=== PATIENT | male | born 1960 | race Caucasian/White ===

== ENCOUNTER 2016-10-09 11:45 | Observation (INO) | payer OTHER ==
[~2016-10-09] VITALS: Ht 177.8 cm; Wt 61.9 kg
[2016-10-09] VITALS (12 sets, daily range): BP systolic 95–108; BP diastolic 49–56
[2016-10-09 12:44] LABS: HEMATOCRIT 14.2 % (38.0-50.0); MCH 34.1 PG (29.0-34.0); MCHC 33.1 G/DL (30.0-36.0); MCV 102.9 FL (86-99); RBC DIS.WIDTH-CV 17.7 % (11.8-14.6); RBC DIS.WIDTH-SD 66.5 % (39-53); RED BLOOD COUNT 1.38 M/uL (4.00-5.50)
[2016-10-09 12:45] LABS: INTER. NORMALIZED RATIO 1.1; PROTHROMBIN TIME 11.4 (9.2-11.2); PTT 28.1 (25-32)
[2016-10-09 12:46] LABS: WHITE BLOOD COUNT 0.7 K/uL (4.1-10.2)
[2016-10-09 12:48] LABS: CHLORIDE 104 mEq/L (99-109); POTASSIUM 4.7 mEq/L (3.7-5.4); SODIUM 133 mEq/L (136-147)
[2016-10-09 12:51] LABS: GLUCOSE 97 mg/dL (70-99)
[2016-10-09 12:52] LABS: ANION GAP 7 MEQ/L (2-14)
[2016-10-09 12:53] LABS: TOTAL BILIRUBIN 0.8 mg/dL (0.0-1.0)
[2016-10-09 12:54] LABS: ALKALINE PHOSPHATASE 60 IU/L (3-129); GFR ESTIMATE (CALCULATED) > 59 mL/min/
[2016-10-09 12:55] LABS: UREA NITROGEN (BUN) 21 mg/dL (9-23)
[2016-10-09] MEDS ORDERED: MORPHINE SULFAT30 M2 PO (14:31)
[2016-10-09] MEDS ORDERED: ACYCLOVIR400 MG PO (14:32)
[2016-10-09] MEDS ORDERED: OXYCODONE HCL20 M1 PO (14:32)
[2016-10-09 14:47] LABS: ABS NEUTROPHIL COUNT 0; ANISOCYTOSIS 2+; EOSINOPHIL ABS CT 0; HYPOCHROMASIA 1+; IMM.PLATELET FRACTION 3.7 (1-7); INSTRUMENT ABS NEUTROPHIL CT 0.1 K/uL; MACROCYTES 1+; MICROCYTOSIS 1+; OVALOCYTES 1+; PLAT.SUFFICIENCY DECREASED; POIKILOCYTOSIS 1+; SMEAR EVALUATION YES; TEAR DROP CELLS 1+
[2016-10-09 14:48] LABS: PLATELET COUNT 4 K/uL (156-360)
[2016-10-10] VITALS (11 sets, daily range): BP systolic 94–108; BP diastolic 50–59
[2016-10-10 10:46] LABS: HEMATOCRIT 21.5 % (38.0-50.0); MCH 31.2 PG (29.0-34.0); RBC DIS.WIDTH-CV 19.2 % (11.8-14.6); RBC DIS.WIDTH-SD 62.9 % (39-53)
[2016-10-10 11:09] LABS: MCV 91.9 FL (86-99); RED BLOOD COUNT 2.34 M/uL (4.00-5.50); WHITE BLOOD COUNT 0.7 K/uL (4.1-10.2)
[2016-10-10 12:21] LABS: EOSINOPHIL (%) 0 % (0-5); IMMATURE GRANULOCYTE (%) 4.5 % (0.0-0.7); INSTRUMENT ABS NEUTROPHIL CT 0.1 K/uL; LYMPHOCYTE COUNT 0.5 K/uL (1.0-2.8); MEAN PLAT.VOLUME 8.3 uM^3 (9.0-12.4); MONOCYTE (%) 6.1 % (3-12); NEUTROPHIL (%) 19.7 % (45-76); NEUTROPHIL COUNT 0.1 K/uL (1.8-6.4); PLAT.SUFFICIENCY DECREASED
[2016-10-10 12:23] LABS: PLATELET COUNT 27 K/uL (156-360)
== END 2016-10-10 14:42 | disposition home or self-care (01) ==
LOC: EME 11:45 → EDOF 13:53 → 5WEST 13:53 → EDOF 14:40 → 5WEST 16:05
PROVIDERS: Emergency Medicine; Internal Medicine
DX: D46.9 Myelodysplastic syndrome, unspecified (principal); D61.818 Other pancytopenia; F17.200 Nicotine dependence, unspecified, uncomplicated
CPT/HCPCS: 73502; 80053; 85007; 85025; 85027; 85060; 85610; 85730; 86850; 86900; 86901; 86920; 99202; 99281; 99285; G0378; J1447; J1940; P9016; P9035

== ENCOUNTER 2016-11-06 11:40 | Inpatient (IN) | payer OTHER ==
[2016-11-06] VITALS (12 sets, daily range): BP systolic 105–123; BP diastolic 51–75
[~2016-11-06] VITALS: Ht 177.8 cm; Wt 68.1 kg
[~2016-11-06 11:40] MED LIST: ACYCLOVIR400 MG PO; MORPHINE SULFAT30 M2 PO; OXYCODONE HCL20 M1 PO
[2016-11-06 12:42] LABS: HEMATOCRIT 13.3 % (38.0-50.0); MCH 31.7 PG (29.0-34.0); MCHC 33.1 G/DL (30.0-36.0); MCV 95.7 FL (86-99); NRBC (%) 5.2 /100 WBC (0-0); RBC DIS.WIDTH-CV 21.6 % (11.8-14.6); RBC DIS.WIDTH-SD 72.3 % (39-53); RED BLOOD COUNT 1.39 M/uL (4.00-5.50)
[2016-11-06 12:44] LABS: CHLORIDE 103 mEq/L (99-109); POTASSIUM 5.2 mEq/L (3.7-5.4); SODIUM 132 mEq/L (136-147)
[2016-11-06 12:45] LABS: WHITE BLOOD COUNT 0.8 K/uL (4.1-10.2)
[2016-11-06 12:46] LABS: GLUCOSE 101 mg/dL (70-99)
[2016-11-06 12:48] LABS: ANION GAP 8 MEQ/L (2-14)
[2016-11-06 12:50] LABS: GFR ESTIMATE (CALCULATED) > 59 mL/min/
[2016-11-06 12:51] LABS: UREA NITROGEN (BUN) 28 mg/dL (9-23)
[2016-11-06 13:31] LABS: ABS NEUTROPHIL COUNT 0.1; ANISOCYTOSIS 2+; BAND NEUTROPHILS 3.1 % (0-8.0); EOSINOPHIL ABS CT 0; HYPOCHROMASIA 2+; IMM.PLATELET FRACTION 5.5 (1-7); INSTRUMENT ABS NEUTROPHIL CT 0.1 K/uL; LYMPHOCYTES 71.4 % (15.0-45.0); MACROCYTES 1+; MEAN PLAT.VOLUME 9.2 uM^3 (9.0-12.4); MICROCYTOSIS 1+; NUCLEATED RBC'S 7.1; OVALOCYTES 1+; PLAT.SUFFICIENCY VERY DECREASED; PLATELET COUNT 14 K/uL (156-360); POLYCHROMASIA 1+; SEG.NEUTROPHILS 14.8 % (46.0-76.0); SMUDGE CELLS 3.6; TEAR DROP CELLS 1+
[2016-11-06 19:43] LABS: METH RESISTANT S AUREUS PCR POSITIVE (NEGATIVE)
[2016-11-06 19:55] LABS: PROBE CHECK PASS
[2016-11-07] VITALS (16 sets, daily range): BP systolic 106–127; BP diastolic 55–67
[2016-11-07 00:39] LABS: PLAT.SUFFICIENCY VERY DECREASED
[2016-11-07 00:43] LABS: HEMATOCRIT 17.9 % (38.0-50.0); IMM.PLATELET FRACTION 5.1 (1-7); MCH 30.8 PG (29.0-34.0); MCHC 34.1 G/DL (30.0-36.0); MEAN PLAT.VOLUME 9.7 uM^3 (9.0-12.4); NRBC (%) 5.4 /100 WBC (0-0); RBC DIS.WIDTH-CV 18.7 % (11.8-14.6); RBC DIS.WIDTH-SD 53.6 % (39-53); RED BLOOD COUNT 1.98 M/uL (4.00-5.50); WHITE BLOOD COUNT 0.9 K/uL (4.1-10.2)
[2016-11-07 00:44] LABS: MCV 90.4 FL (86-99); PLATELET COUNT 13 K/uL (156-360)
[2016-11-07 08:32] LABS: ANION GAP 6 MEQ/L (2-14); CHLORIDE 101 MEQ/L (99-109); GFR ESTIMATE (CALCULATED) > 59 mL/min/; GLUCOSE 97 mg/dL (70-99); POTASSIUM 4.4 MEQ/L (3.7-5.4); SAMPLE HEMOLYSIS CHECK 0; SAMPLE ICTERIC CHECK 0; SAMPLE LIPEMIA CHECK 0; SODIUM 129 MEQ/L (136-147); UREA NITROGEN (BUN) 25 mg/dL (9-23)
[2016-11-07 08:37] LABS: HEMATOCRIT 24.1 % (38.0-50.0); MCHC 33.6 G/DL (30.0-36.0); MCV 89.3 FL (86-99); NRBC (%) 4.9 /100 WBC (0-0); RBC DIS.WIDTH-CV 17.8 % (11.8-14.6); RBC DIS.WIDTH-SD 50.8 % (39-53)
[2016-11-07 09:32] LABS: IMM.PLATELET FRACTION 3.6 (1-7); MEAN PLAT.VOLUME 8.6 uM^3 (9.0-12.4); PLATELET COUNT 21 K/uL (156-360)
[2016-11-07 09:34] LABS: PLAT.SUFFICIENCY VERY DECREASED
[2016-11-07 09:58] LABS: ALKALINE PHOSPHATASE 98 IU/L (3-129); DIRECT BILIRUBIN 0.5 mg/dL (0.0-0.3); MAGNESIUM 1.7 mg/dl (1.3-2.7); TOTAL BILIRUBIN 1.9 MG/DL (0.0-1.0)
[2016-11-08 04:28] VITALS: BP 116/56
[2016-11-08 06:43] LABS: ANION GAP 6 MEQ/L (2-14); CHLORIDE 100 MEQ/L (99-109); GFR ESTIMATE (CALCULATED) > 59 mL/min/; GLUCOSE 131 mg/dL (70-99); POTASSIUM 4.1 MEQ/L (3.7-5.4); SAMPLE HEMOLYSIS CHECK 0; SAMPLE ICTERIC CHECK 0; SAMPLE LIPEMIA CHECK 0; SODIUM 130 MEQ/L (136-147); UREA NITROGEN (BUN) 22 mg/dL (9-23)
[2016-11-08 06:53] LABS: HEMATOCRIT 22.4 % (38.0-50.0); IMM.PLATELET FRACTION 2.8 (1-7); MCHC 33.5 G/DL (30.0-36.0); MCV 89.6 FL (86-99); NRBC (%) 2.4 /100 WBC (0-0); RBC DIS.WIDTH-CV 18.3 % (11.8-14.6); RBC DIS.WIDTH-SD 54.4 % (39-53)
[2016-11-08 07:00] LABS: WHITE BLOOD COUNT 1.3 K/uL (4.1-10.2)
[2016-11-08 07:01] LABS: MEAN PLAT.VOLUME 10.8 uM^3 (9.0-12.4); PLATELET COUNT 21 K/uL (156-360)
[2016-11-08 08:08] VITALS: BP 131/59
[2016-11-08 08:30] LABS: ABS NEUTROPHIL COUNT 0.4; ANISOCYTOSIS 1+; ATYPICAL LYMPHOCYTE 6.7 %; BAND NEUTROPHILS 3.8 % (0-8.0); EOSINOPHIL ABS CT 0; INSTRUMENT ABS NEUTROPHIL CT 0.3 K/uL; LYMPHOCYTES 54.8 % (15.0-45.0); MACROCYTES 1+; SEG.NEUTROPHILS 30.8 % (46.0-76.0); SMUDGE CELLS 8.7
[2016-11-08 09:30] LABS: PLAT.SUFFICIENCY VERY DECREASED
[2016-11-08 11:32] VITALS: BP 120/58
[2016-11-08 12:55] LABS: ABS NEUTROPHIL COUNT 0.5; ANISOCYTOSIS 1+; ATYPICAL LYMPHOCYTE 4.4 %; EOSINOPHIL ABS CT 0; HEMATOCRIT 23.4 % (38.0-50.0); IMM.PLATELET FRACTION 3.2 (1-7); INSTRUMENT ABS NEUTROPHIL CT 0.4 K/uL; LYMPHOCYTES 51.8 % (15.0-45.0); MACROCYTES 1+; MCH 30.1 PG (29.0-34.0); MCHC 33.3 G/DL (30.0-36.0); MCV 90.3 FL (86-99); METAMYELOCYTES 1.8 %; NUCLEATED RBC'S 0.9; RBC DIS.WIDTH-CV 18.4 % (11.8-14.6); RBC DIS.WIDTH-SD 55.5 % (39-53); RED BLOOD COUNT 2.59 M/uL (4.00-5.50); SEG.NEUTROPHILS 33.3 % (46.0-76.0); SMUDGE CELLS 9.6
[2016-11-08 13:00] LABS: PLAT.SUFFICIENCY VERY DECREASED; PLATELET COUNT 19 K/uL (156-360); WHITE BLOOD COUNT 1.3 K/uL (4.1-10.2)
[2016-11-14] MEDS ORDERED: MORPHINE SULFAT30 M5 PO (15:12)
[2016-11-14] MEDS ORDERED: OXYCODONE HCL20 M1 PO (15:12)
== END 2016-11-08 13:15 | disposition home or self-care (01) | DRG 812 ==
LOC: EME 11:40 → 4EAST 13:41 → EDOF 13:41 → 4EAST 17:04
PROVIDERS: Emergency Medicine; Hospitalist; Internal Medicine
PROC: 30253R1 (ICD-10-PCS; principal; 2016-11-06)
PROC: 30233N1 Transfusion of Nonautologous Red Blood Cells into Peripheral Vein, Percutaneous Approach (ICD-10-PCS; 2016-11-06)
DX: D46.9 Myelodysplastic syndrome, unspecified (principal); D61.818 Other pancytopenia; E87.1 Hypo-osmolality and hyponatremia; M54.9 Dorsalgia, unspecified; M25.50 Pain in unspecified joint; F17.210 Nicotine dependence, cigarettes, uncomplicated; I95.9 Hypotension, unspecified; R00.1 Bradycardia, unspecified; Z86.14 Personal history of Methicillin resistant Staphylococcus aureus infection; Z88.1 Allergy status to other antibiotic agents; Z80.1 Family history of malignant neoplasm of trachea, bronchus and lung; Z80.0 Family history of malignant neoplasm of digestive organs; Z80.8 Family history of malignant neoplasm of other organs or systems; Z80.49 Family history of malignant neoplasm of other genital organs
CPT/HCPCS: 36415; 80048; 80076; 83735; 84100; 85007; 85025; 85025 91; 85027; 86850; 86900; 86901; 86920; 87641; 93005; 99281; 99285; J1447; P9016; P9035; S0028

== ENCOUNTER 2017-01-16 09:49 | Emergency (ER) | payer OTHER ==
[~2017-01-16] VITALS: Ht 180.3 cm; Wt 60.7 kg
[~2017-01-16 09:49] MED LIST changes: +LEVAQUIN500 MG PO; +LORAZEPAM0.5 MG PO; +MIRALAX255 GM PO; +MORPHINE SULFAT30 M5 PO; +ONDANSETRON HCL4 MG PO
[2017-01-16 12:06] VITALS: BP 99/52
== END 2017-01-16 12:08 | disposition home or self-care (01) ==
LOC: EME 09:49
DX: D64.9 Anemia, unspecified (principal); D46.9 Myelodysplastic syndrome, unspecified; Z79.899 Other long term (current) drug therapy; F17.200 Nicotine dependence, unspecified, uncomplicated
CPT/HCPCS: 99281; 99283

== ENCOUNTER 2017-02-05 08:15 | Day surgery (SDC) | payer OTHER ==
[~2017-02-05] VITALS: Ht 177.8 cm; Wt 60.3 kg
[2017-02-05 11:38] LABS: HEMATOCRIT 23.9 % (38.0-50.0); MCH 30.5 PG (29.0-34.0); MCHC 33.5 G/DL (30.0-36.0); MCV 91.2 FL (86-99); NRBC (%) 2.5 /100 WBC (0-0); RBC DIS.WIDTH-SD 51.9 % (39-53); RED BLOOD COUNT 2.62 M/uL (4.00-5.50)
[2017-02-05 12:19] LABS: EOSINOPHIL (%) 0 % (0-5); IMMATURE GRANULOCYTE (%) 0.8 % (0.0-0.7); INSTRUMENT ABS NEUTROPHIL CT 0.1 K/uL; LYMPHOCYTE COUNT 1.1 K/uL (1.0-2.8); MEAN PLAT.VOLUME 10.4 uM^3 (9.0-12.4); MONOCYTE (%) 4.1 % (3-12); MONOCYTE COUNT 0.1 K/uL (0-0.8); NEUTROPHIL (%) 5.8 % (45-76); NEUTROPHIL COUNT 0.1 K/uL (1.8-6.4); PLAT.SUFFICIENCY DECREASED
[2017-02-05 12:20] LABS: PLATELET COUNT 21 K/uL (156-360); WHITE BLOOD COUNT 1.2 K/uL (4.1-10.2)
== END 2017-02-05 15:28 | disposition home or self-care (01) ==
LOC: CATH 08:15
PROVIDERS: Surgery
PROC: 0JH60XZ Insertion of Tunneled Vascular Access Device into Chest Subcutaneous Tissue and Fascia, Open Approach (ICD-10-PCS; principal; 2017-02-05)
DX: D46.9 Myelodysplastic syndrome, unspecified (principal); F17.210 Nicotine dependence, cigarettes, uncomplicated; Z82.49 Family history of ischemic heart disease and other diseases of the circulatory system
CPT/HCPCS: 36415; 80053; 85025; 86900; 86901; C1752; C1894; J0690; J1644; J2250; J3010; P9035; S0020

== ENCOUNTER 2017-02-10 16:44 | Inpatient (IN) | payer OTHER ==
[~2017-02-10] VITALS: Ht 177.8 cm; Wt 67.3 kg
[2017-02-10 15:18] LABS: ANION GAP 7 MEQ/L (2-14); CHLORIDE 100 MEQ/L (99-109); POTASSIUM 3.5 MEQ/L (3.7-5.4); SAMPLE HEMOLYSIS CHECK 0; SAMPLE ICTERIC CHECK 0; SAMPLE LIPEMIA CHECK 0; SODIUM 129 MEQ/L (136-147); TOTAL BILIRUBIN 1.6 MG/DL (0.0-1.0)
[2017-02-10 15:24] LABS: ALKALINE PHOSPHATASE 120 IU/L (3-129); GFR ESTIMATE (CALCULATED) > 59 mL/min/; GLUCOSE 98 mg/dL (70-99); UREA NITROGEN (BUN) 24 mg/dL (9-23)
[2017-02-10 15:29] LABS: HEMATOCRIT 14.2 % (38.0-50.0); MCH 29.6 PG (29.0-34.0); MCHC 33.8 G/DL (30.0-36.0); MCV 87.7 FL (86-99); RBC DIS.WIDTH-CV 15.4 % (11.8-14.6); RBC DIS.WIDTH-SD 46.2 % (39-53); RED BLOOD COUNT 1.62 M/uL (4.00-5.50); WHITE BLOOD COUNT 0.3 K/uL (4.1-10.2)
[2017-02-10 17:06] LABS: ABS NEUTROPHIL COUNT 0; ANISOCYTOSIS 1+; EOSINOPHIL ABS CT 0; HYPOCHROMASIA 3+; IMM.PLATELET FRACTION 2.4 (1-7); INSTRUMENT ABS NEUTROPHIL CT 0 K/uL; MACROCYTES 1+; MEAN PLAT.VOLUME 8.7 uM^3 (9.0-12.4)
[2017-02-10 17:07] LABS: PLAT.SUFFICIENCY VERY DECREASED; PLATELET COUNT 14 K/uL (156-360)
[2017-02-10] MEDS ORDERED: MS CONTIN,ORAMO30 MG PO (17:38)
[2017-02-10] MEDS ORDERED: CLOTRIMAZOLE10 MG PO (17:39)
[2017-02-10] MEDS ORDERED: EPOGEN,PRO20000 UNIT IV (17:40)
[2017-02-10 18:06] LABS: CHLORIDE 99 mEq/L (99-109); POTASSIUM 3.2 mEq/L (3.7-5.4); SODIUM 130 mEq/L (136-147)
[2017-02-10 18:08] LABS: GLUCOSE 96 mg/dL (70-99)
[2017-02-10 18:09] LABS: ANION GAP 10 MEQ/L (2-14)
[2017-02-10 18:12] LABS: GFR ESTIMATE (CALCULATED) > 59 mL/min/; UREA NITROGEN (BUN) 25 mg/dL (9-23)
[2017-02-10 18:18] LABS: TROP-I INTERPRETATION NEGATIVE; TROPONIN-I < 0.01 ng/mL (0.0-0.30)
[2017-02-10 20:15] VITALS: BP 93/46
[2017-02-10 20:31] VITALS: BP 87/37
[2017-02-10] MEDS ORDERED: ACYCLOVIR400 MG PO (20:35)
[2017-02-10 21:32] VITALS: BP 99/47
[2017-02-10 22:12] VITALS: BP 100/71
[2017-02-10 23:10] VITALS: BP 97/47
[2017-02-10 23:26] VITALS: BP 101/47
[2017-02-11] VITALS (22 sets, daily range): BP systolic 11–125; BP diastolic 46–98
[2017-02-11 03:33] LABS: METH RESISTANT S AUREUS PCR POSITIVE (NEGATIVE)
[2017-02-11 03:37] LABS: PROBE CHECK PASS
[2017-02-11 05:51] LABS: TROP-I INTERPRETATION NEGATIVE; TROPONIN-I < 0.01 ng/mL (0.0-0.30)
[2017-02-11 05:56] LABS: ALKALINE PHOSPHATASE 95 IU/L (3-129); ANION GAP 6 MEQ/L (2-14); CHLORIDE 104 MEQ/L (99-109); DIRECT BILIRUBIN 0.9 mg/dL (0.0-0.3); GFR ESTIMATE (CALCULATED) > 59 mL/min/; GLUCOSE 96 mg/dL (70-99); POTASSIUM 3.4 MEQ/L (3.7-5.4); SAMPLE HEMOLYSIS CHECK 0; SAMPLE ICTERIC CHECK 0; SAMPLE LIPEMIA CHECK 0; SODIUM 132 MEQ/L (136-147); UREA NITROGEN (BUN) 22 mg/dL (9-23)
[2017-02-11 05:57] LABS: TOTAL BILIRUBIN 2.5 MG/DL (0.0-1.0)
[2017-02-11 07:07] LABS: HEMATOCRIT 17.2 % (38.0-50.0); MCH 29.9 PG (29.0-34.0); MCHC 34.3 G/DL (30.0-36.0); MCV 87.3 FL (86-99); RBC DIS.WIDTH-CV 14.6 % (11.8-14.6); RBC DIS.WIDTH-SD 44.2 % (39-53)
[2017-02-11 07:11] LABS: PLATELET COUNT 9 K/uL (156-360); RED BLOOD COUNT 1.97 M/uL (4.00-5.50); WHITE BLOOD COUNT 0.3 K/uL (4.1-10.2)
[2017-02-11 07:12] LABS: PLAT.SUFFICIENCY DECREASED
[2017-02-11] MEDS ORDERED: ACYCLOVIR400 MG PO (10:02)
[2017-02-11] MEDS ORDERED: FLUCONAZOLE200 MG PO (10:04)
[2017-02-11 13:13] LABS: ADD MIUA? YES; BILIRUBIN NEGATIVE; BLOOD NEGATIVE; COLOR AMBER ((YELLOW)); GLUCOSE (STRIP) NEGATIVE; KETONES NEGATIVE; LEUKOCYTES NEGATIVE; NITRITE NEGATIVE; PROTEIN (STRIP) NEGATIVE; SPECIFIC GRAVITY 1.027 (1.000-1.030)
[2017-02-11 13:40] LABS: BACTERIA RARE /HPF; EPITHELIAL CELLS RARE /HPF; MUCUS 2+ /LPF; RED BLOOD CELLS TNTC /HPF (0-5); UCUL ADDED? NO; WHITE BLOOD CELLS 0-5 /HPF (0-5)
[2017-02-11 15:09] LABS: C DIFF TOXIN NEGATIVE (NEGATIVE)
[2017-02-11 15:10] LABS: PROBE CHECK PASS; SPECIMEN PROCESSING CONTROL PASS
[2017-02-11 18:26] LABS: HEMATOCRIT 24.1 % (38.0-50.0); IMM.PLATELET FRACTION 4.8 (1-7); MCH 29.5 PG (29.0-34.0); MCHC 34.9 G/DL (30.0-36.0); MCV 84.6 FL (86-99); PLAT.SUFFICIENCY VERY DECREASED; PLATELET COUNT 9 K/uL (156-360); RBC DIS.WIDTH-CV 15.7 % (11.8-14.6); RED BLOOD COUNT 2.85 M/uL (4.00-5.50); WHITE BLOOD COUNT 0.3 K/uL (4.1-10.2)
[2017-02-11 20:30] LABS: INTER. NORMALIZED RATIO 1.4; PROTHROMBIN TIME 15.8 SEC (10.2-12.9)
[2017-02-11 20:32] LABS: PTT 34.9 SEC (25-37)
[2017-02-11 21:32] LABS: D-DIMER LATEX NEGATIVE
[2017-02-11 21:44] LABS: SCHISTOCYTES NONE SEEN
[2017-02-11 22:32] LABS: FIBRINOGEN 341 mg/dL (150-450)
[2017-02-12] VITALS (23 sets, daily range): BP systolic 11–122; BP diastolic 49–78
[2017-02-12 04:54] LABS: CHLORIDE 95 mEq/L (99-109); POTASSIUM 3.6 mEq/L (3.7-5.4); SODIUM 126 mEq/L (136-147)
[2017-02-12 04:56] LABS: GLUCOSE 101 mg/dL (70-99)
[2017-02-12 04:57] LABS: ANION GAP 10 MEQ/L (2-14)
[2017-02-12 05:00] LABS: GFR ESTIMATE (CALCULATED) > 59 mL/min/; HEMATOCRIT 26.7 % (38.0-50.0); MCH 29.2 PG (29.0-34.0); MCHC 34.8 G/DL (30.0-36.0); RBC DIS.WIDTH-CV 14.8 % (11.8-14.6); RBC DIS.WIDTH-SD 44.9 % (39-53); RED BLOOD COUNT 3.18 M/uL (4.00-5.50)
[2017-02-12 05:01] LABS: UREA NITROGEN (BUN) 19 mg/dL (9-23); WHITE BLOOD COUNT 0.4 K/uL (4.1-10.2)
[2017-02-12 05:41] LABS: TROP-I INTERPRETATION NEGATIVE; TROPONIN-I < 0.01 ng/mL (0.0-0.30)
[2017-02-12 09:11] LABS: IMM.PLATELET FRACTION 1.3 (1-7); MEAN PLAT.VOLUME 9.4 uM^3 (9.0-12.4)
[2017-02-12 09:18] LABS: PLATELET COUNT 35 K/uL (156-360)
[2017-02-12 11:00] LABS: POC NON-PRINT COM 1 ND
[2017-02-12 12:05] LABS: HEMATOCRIT 19.3 % (38.0-50.0); MCH 29.5 PG (29.0-34.0); MCHC 34.7 G/DL (30.0-36.0); RBC DIS.WIDTH-CV 15.1 % (11.8-14.6); RBC DIS.WIDTH-SD 46.5 % (39-53)
[2017-02-12 12:08] LABS: TROP-I INTERPRETATION NEGATIVE; TROPONIN-I < 0.01 ng/mL (0.0-0.30)
[2017-02-12 12:25] LABS: RED BLOOD COUNT 2.27 M/uL (4.00-5.50); WHITE BLOOD COUNT 0.2 K/uL (4.1-10.2)
[2017-02-12 12:49] LABS: IMM.PLATELET FRACTION 1.1 (1-7); MEAN PLAT.VOLUME 9.6 uM^3 (9.0-12.4); PLAT.SUFFICIENCY VERY DECREASED; PLATELET COUNT 25 K/uL (156-360)
[2017-02-12 14:22] LABS: HEMATOCRIT 27.6 % (38.0-50.0); IMM.PLATELET FRACTION 1.3 (1-7); MCH 30.8 PG (29.0-34.0); MCHC 36.6 G/DL (30.0-36.0); MCV 84.1 FL (86-99); MEAN PLAT.VOLUME 9.2 uM^3 (9.0-12.4); PLATELET COUNT 32 K/uL (156-360); RBC DIS.WIDTH-CV 14.7 % (11.8-14.6); RBC DIS.WIDTH-SD 44.2 % (39-53)
[2017-02-12 14:23] LABS: RED BLOOD COUNT 3.28 M/uL (4.00-5.50); WHITE BLOOD COUNT 0.3 K/uL (4.1-10.2)
[2017-02-12 15:11] LABS: PLAT.SUFFICIENCY VERY DECREASED
[2017-02-12 19:12] LABS: HEMATOCRIT 25.5 % (38.0-50.0); MCH 29.8 PG (29.0-34.0); MCHC 34.9 G/DL (30.0-36.0); MCV 85.3 FL (86-99); MEAN PLAT.VOLUME 10.5 uM^3 (9.0-12.4); NRBC (%) 6.7 /100 WBC (0-0); PLAT.SUFFICIENCY DECREASED; RBC DIS.WIDTH-CV 14.9 % (11.8-14.6); RBC DIS.WIDTH-SD 44.6 % (39-53); RED BLOOD COUNT 2.99 M/uL (4.00-5.50)
[2017-02-12 19:13] LABS: ANION GAP 18 MEQ/L (2-14); GFR ESTIMATE (CALCULATED) > 59 mL/min/; GLUCOSE 116 mg/dL (70-99); POTASSIUM 3.5 MEQ/L (3.7-5.4); SAMPLE HEMOLYSIS CHECK 0; SAMPLE ICTERIC CHECK 0; SAMPLE LIPEMIA CHECK 0; UREA NITROGEN (BUN) 17 mg/dL (9-23)
[2017-02-12 19:15] LABS: CHLORIDE 92 MEQ/L (99-109); PLATELET COUNT 115 K/uL (156-360); SODIUM 134 MEQ/L (136-147); WHITE BLOOD COUNT 0.3 K/uL (4.1-10.2)
[2017-02-13] VITALS (13 sets, daily range): BP systolic 95–128; BP diastolic 46–64
[2017-02-13 03:44] LABS: HEMATOCRIT 24.2 % (38.0-50.0); MCH 29.7 PG (29.0-34.0); MCHC 35.5 G/DL (30.0-36.0); MCV 83.4 FL (86-99); RBC DIS.WIDTH-CV 14.7 % (11.8-14.6); RBC DIS.WIDTH-SD 43.9 % (39-53)
[2017-02-13 03:45] LABS: WHITE BLOOD COUNT 0.3 K/uL (4.1-10.2)
[2017-02-13 05:07] LABS: IMM.PLATELET FRACTION 2.3 (1-7); MEAN PLAT.VOLUME 12.1 uM^3 (9.0-12.4); PLAT.SUFFICIENCY DECREASED
[2017-02-13 05:08] LABS: PLATELET COUNT 42 K/uL (156-360)
[2017-02-13 07:06] LABS: HEMATOCRIT 24.8 % (38.0-50.0); MCH 29.2 PG (29.0-34.0); MCHC 34.7 G/DL (30.0-36.0); MCV 84.1 FL (86-99); RBC DIS.WIDTH-CV 14.7 % (11.8-14.6); RBC DIS.WIDTH-SD 44.4 % (39-53); RED BLOOD COUNT 2.95 M/uL (4.00-5.50)
[2017-02-13 07:23] LABS: WHITE BLOOD COUNT 0.4 K/uL (4.1-10.2)
[2017-02-13 07:34] LABS: IMM.PLATELET FRACTION 2.1 (1-7); MEAN PLAT.VOLUME 9.5 uM^3 (9.0-12.4); PLAT.SUFFICIENCY DECREASED; PLATELET COUNT 37 K/uL (156-360)
[2017-02-13 11:12] LABS: MCH 30.3 PG (29.0-34.0); MCHC 35.6 G/DL (30.0-36.0); RBC DIS.WIDTH-CV 14.9 % (11.8-14.6); RBC DIS.WIDTH-SD 45.4 % (39-53); RED BLOOD COUNT 2.94 M/uL (4.00-5.50)
[2017-02-13 11:15] LABS: WHITE BLOOD COUNT 0.2 K/uL (4.1-10.2)
[2017-02-13 11:54] LABS: IMM.PLATELET FRACTION 1.3 (1-7); MEAN PLAT.VOLUME 9.7 uM^3 (9.0-12.4); PLATELET COUNT 37 K/uL (156-360)
[2017-02-13 19:04] LABS: HEMATOCRIT 28.6 % (38.0-50.0); MCV 85.9 FL (86-99); RBC DIS.WIDTH-SD 46.3 % (39-53); RED BLOOD COUNT 3.33 M/uL (4.00-5.50)
[2017-02-13 19:06] LABS: WHITE BLOOD COUNT 0.3 K/uL (4.1-10.2)
[2017-02-13 19:10] LABS: IMM.PLATELET FRACTION 1.9 (1-7); MEAN PLAT.VOLUME 10.3 uM^3 (9.0-12.4); PLAT.SUFFICIENCY DECREASED; PLATELET COUNT 33 K/uL (156-360)
[2017-02-14] VITALS (14 sets, daily range): BP systolic 92–127; BP diastolic 48–75
[2017-02-14 09:11] LABS: ANION GAP 4 MEQ/L (2-14); CHLORIDE 96 MEQ/L (99-109); GFR ESTIMATE (CALCULATED) > 59 mL/min/; GLUCOSE 92 mg/dL (70-99); POTASSIUM 4.2 MEQ/L (3.7-5.4); SAMPLE HEMOLYSIS CHECK 0; SAMPLE ICTERIC CHECK 0; SAMPLE LIPEMIA CHECK 0; SODIUM 128 MEQ/L (136-147); UREA NITROGEN (BUN) 17 mg/dL (9-23)
[2017-02-14 09:13] LABS: MCH 29.5 PG (29.0-34.0); MCHC 34.1 G/DL (30.0-36.0); MCV 86.5 FL (86-99); RBC DIS.WIDTH-CV 15.1 % (11.8-14.6); RBC DIS.WIDTH-SD 47.1 % (39-53); RED BLOOD COUNT 3.12 M/uL (4.00-5.50)
[2017-02-14 09:21] LABS: WHITE BLOOD COUNT 0.3 K/uL (4.1-10.2)
[2017-02-14 09:31] LABS: PLATELET COUNT 62 K/uL (156-360)
[2017-02-14 16:09] LABS: ADD MIUA? NO; BILIRUBIN NEGATIVE; BLOOD NEGATIVE; COLOR AMBER ((YELLOW)); GLUCOSE (STRIP) NEGATIVE; KETONES NEGATIVE; LEUKOCYTES NEGATIVE; NITRITE NEGATIVE; PROTEIN (STRIP) 30; UCUL ADDED? NO
[2017-02-15] VITALS (13 sets, daily range): BP systolic 106–133; BP diastolic 55–66
[2017-02-15 06:21] LABS: HEMATOCRIT 26.5 % (38.0-50.0); MCH 29.6 PG (29.0-34.0); MCHC 34.3 G/DL (30.0-36.0); MCV 86.3 FL (86-99); RBC DIS.WIDTH-CV 15.2 % (11.8-14.6); RBC DIS.WIDTH-SD 47.4 % (39-53); RED BLOOD COUNT 3.07 M/uL (4.00-5.50)
[2017-02-15 06:55] LABS: WHITE BLOOD COUNT 0.4 K/uL (4.1-10.2)
[2017-02-15 07:12] LABS: ANION GAP 5 MEQ/L (2-14); CHLORIDE 96 MEQ/L (99-109); GFR ESTIMATE (CALCULATED) > 59 mL/min/; GLUCOSE 102 mg/dL (70-99); POTASSIUM 4.3 MEQ/L (3.7-5.4); SAMPLE HEMOLYSIS CHECK 0; SAMPLE ICTERIC CHECK 0; SAMPLE LIPEMIA CHECK 0; SODIUM 127 MEQ/L (136-147); UREA NITROGEN (BUN) 17 mg/dL (9-23)
[2017-02-15 07:21] LABS: EOSINOPHIL (%) 0 % (0-5); IMM.PLATELET FRACTION 0.9 (1-7); INSTRUMENT ABS NEUTROPHIL CT 0 K/uL; LYMPHOCYTE COUNT 0.3 K/uL (1.0-2.8); MEAN PLAT.VOLUME 10.3 uM^3 (9.0-12.4); MONOCYTE (%) 2.7 % (3-12); NEUTROPHIL (%) 8.1 % (45-76); PLATELET COUNT 44 K/uL (156-360)
[2017-02-15 09:36] LABS: POC NON-PRINT COM 1 ND
[2017-02-15 10:42] LABS: GFR ESTIMATE (CALCULATED) > 59 mL/min/
[2017-02-15 10:44] LABS: VANCOMYCIN, TROUGH 6.5 MCG/ML (10-20)
[2017-02-16] VITALS (7 sets, daily range): BP systolic 105–140; BP diastolic 52–81
[2017-02-16 05:44] LABS: ANION GAP 7 MEQ/L (2-14); CHLORIDE 96 MEQ/L (99-109); GFR ESTIMATE (CALCULATED) > 59 mL/min/; GLUCOSE 92 mg/dL (70-99); POTASSIUM 4.3 MEQ/L (3.7-5.4); SAMPLE HEMOLYSIS CHECK 0; SAMPLE ICTERIC CHECK 0; SAMPLE LIPEMIA CHECK 0; SODIUM 128 MEQ/L (136-147); UREA NITROGEN (BUN) 17 mg/dL (9-23)
[2017-02-16 07:33] LABS: HEMATOCRIT 25.7 % (38.0-50.0); MCH 29.3 PG (29.0-34.0); MCHC 33.5 G/DL (30.0-36.0); MCV 87.4 FL (86-99); NRBC (%) 6.9 /100 WBC (0-0); RBC DIS.WIDTH-CV 15.4 % (11.8-14.6); RED BLOOD COUNT 2.94 M/uL (4.00-5.50)
[2017-02-16 07:57] LABS: WHITE BLOOD COUNT 0.3 K/uL (4.1-10.2)
[2017-02-16 08:41] LABS: EOSINOPHIL (%) 0 % (0-5); IMMATURE GRANULOCYTE (%) 3.4 % (0.0-0.7); INSTRUMENT ABS NEUTROPHIL CT 0 K/uL; LYMPHOCYTE COUNT 0.3 K/uL (1.0-2.8); MEAN PLAT.VOLUME 9.8 uM^3 (9.0-12.4); MONOCYTE (%) 3.4 % (3-12); NEUTROPHIL (%) 3.5 % (45-76)
[2017-02-16 08:56] LABS: PLATELET COUNT 59 K/uL (156-360)
[2017-02-17 08:30] VITALS: BP 112/56
[2017-02-17 09:07] LABS: HEMATOCRIT 27.3 % (38.0-50.0); MCHC 34.1 G/DL (30.0-36.0); MCV 88.1 FL (86-99); RBC DIS.WIDTH-CV 15.9 % (11.8-14.6); RBC DIS.WIDTH-SD 50.4 % (39-53)
[2017-02-17 09:13] LABS: WHITE BLOOD COUNT 0.3 K/uL (4.1-10.2)
[2017-02-17 09:15] LABS: ANION GAP 7 MEQ/L (2-14); CHLORIDE 97 MEQ/L (99-109); POTASSIUM 4.4 MEQ/L (3.7-5.4); SAMPLE HEMOLYSIS CHECK 0; SAMPLE ICTERIC CHECK 0; SAMPLE LIPEMIA CHECK 0; SODIUM 131 MEQ/L (136-147)
[2017-02-17 09:17] LABS: MEAN PLAT.VOLUME 10.5 uM^3 (9.0-12.4); PLATELET COUNT 45 K/uL (156-360)
[2017-02-17 09:18] LABS: PLAT.SUFFICIENCY DECREASED
[2017-02-17 09:20] LABS: GFR ESTIMATE (CALCULATED) > 59 mL/min/; GLUCOSE 113 mg/dL (70-99); UREA NITROGEN (BUN) 15 mg/dL (9-23)
[2017-02-17 16:26] VITALS: BP 123/61
[2017-02-17 23:06] VITALS: BP 130/61
[2017-02-18 07:52] VITALS: BP 124/59
[2017-02-18 09:43] LABS: HEMATOCRIT 26.1 % (38.0-50.0); MCH 30.6 PG (29.0-34.0); MCHC 34.5 G/DL (30.0-36.0); MCV 88.8 FL (86-99); RBC DIS.WIDTH-CV 15.9 % (11.8-14.6); RBC DIS.WIDTH-SD 51.3 % (39-53); RED BLOOD COUNT 2.94 M/uL (4.00-5.50)
[2017-02-18 09:47] LABS: ANION GAP 5 MEQ/L (2-14); CHLORIDE 96 MEQ/L (99-109); GFR ESTIMATE (CALCULATED) > 59 mL/min/; GLUCOSE 103 mg/dL (70-99); POTASSIUM 4.3 MEQ/L (3.7-5.4); SAMPLE HEMOLYSIS CHECK 0; SAMPLE ICTERIC CHECK 0; SAMPLE LIPEMIA CHECK 0; SODIUM 131 MEQ/L (136-147); UREA NITROGEN (BUN) 15 mg/dL (9-23)
[2017-02-18 09:48] LABS: WHITE BLOOD COUNT 0.5 K/uL (4.1-10.2)
[2017-02-18 10:54] LABS: ABS NEUTROPHIL COUNT 0; ANISOCYTOSIS 2+; ATYPICAL LYMPHOCYTE 2.3 %; BAND NEUTROPHILS 2.3 % (0-8.0); BURR CELLS 1+; EOSINOPHIL ABS CT 0; IMM.PLATELET FRACTION 0.6 (1-7); INSTRUMENT ABS NEUTROPHIL CT 0 K/uL; LYMPHOCYTES 88.9 % (15.0-45.0); MACROCYTES 2+; MEAN PLAT.VOLUME 11.2 uM^3 (9.0-12.4); METAMYELOCYTES 0.6 %; MYELOCYTES 1.8 %; NUCLEATED RBC'S 0.6; OVALOCYTES 1+; PLAT.SUFFICIENCY DECREASED; PLATELET COUNT 34 K/uL (156-360); SEG.NEUTROPHILS 4.1 % (46.0-76.0); SMUDGE CELLS 13.5; TARGET CELLS 1+
[2017-02-18 16:08] VITALS: BP 121/58
[2017-02-19 00:38] VITALS: BP 131/63
[2017-02-19 06:31] LABS: HEMATOCRIT 24.7 % (38.0-50.0); MCHC 34.8 G/DL (30.0-36.0); MCV 89.2 FL (86-99); NRBC (%) 4.5 /100 WBC (0-0); RBC DIS.WIDTH-SD 51.7 % (39-53); RED BLOOD COUNT 2.77 M/uL (4.00-5.50)
[2017-02-19 06:36] LABS: ANION GAP 6 MEQ/L (2-14); CHLORIDE 96 MEQ/L (99-109); GFR ESTIMATE (CALCULATED) > 59 mL/min/; GLUCOSE 96 mg/dL (70-99); POTASSIUM 4.4 MEQ/L (3.7-5.4); SAMPLE HEMOLYSIS CHECK 0; SAMPLE ICTERIC CHECK 0; SAMPLE LIPEMIA CHECK 0; SODIUM 130 MEQ/L (136-147); UREA NITROGEN (BUN) 14 mg/dL (9-23)
[2017-02-19 06:40] LABS: WHITE BLOOD COUNT 0.4 K/uL (4.1-10.2)
[2017-02-19 06:48] LABS: IMM.PLATELET FRACTION 1.4 (1-7); MEAN PLAT.VOLUME 10.9 uM^3 (9.0-12.4)
[2017-02-19 06:49] LABS: PLAT.SUFFICIENCY VERY DECREASED; PLATELET COUNT 26 K/uL (156-360)
[2017-02-19 08:00] VITALS: BP 121/59
[2017-02-19 17:00] VITALS: BP 124/61
[2017-02-19 23:27] VITALS: BP 139/64
[2017-02-20] VITALS (9 sets, daily range): BP systolic 124–142; BP diastolic 56–90
[2017-02-20 06:27] LABS: ANION GAP 7 MEQ/L (2-14); CHLORIDE 99 MEQ/L (99-109); GFR ESTIMATE (CALCULATED) > 59 mL/min/; GLUCOSE 98 mg/dL (70-99); POTASSIUM 4.2 MEQ/L (3.7-5.4); SAMPLE HEMOLYSIS CHECK 0; SAMPLE ICTERIC CHECK 0; SAMPLE LIPEMIA CHECK 0; SODIUM 133 MEQ/L (136-147); UREA NITROGEN (BUN) 14 mg/dL (9-23)
[2017-02-20 06:57] LABS: MCH 29.8 PG (29.0-34.0); MCHC 33.6 G/DL (30.0-36.0); MCV 88.7 FL (86-99); RBC DIS.WIDTH-SD 52.2 % (39-53); RED BLOOD COUNT 2.82 M/uL (4.00-5.50)
[2017-02-20 07:16] LABS: WHITE BLOOD COUNT 0.5 K/uL (4.1-10.2)
[2017-02-20 10:47] LABS: ABS NEUTROPHIL COUNT 0.1; EOSINOPHIL ABS CT 0; IMM.PLATELET FRACTION 1.4 (1-7); INSTRUMENT ABS NEUTROPHIL CT 0.1 K/uL; MEAN PLAT.VOLUME 9.2 uM^3 (9.0-12.4)
[2017-02-20 10:49] LABS: PLATELET COUNT 23 K/uL (156-360)
[2017-02-21 00:40] VITALS: BP 136/90
[2017-02-21 00:47] LABS: HEMATOCRIT 24.4 % (38.0-50.0); MCH 29.6 PG (29.0-34.0); MCHC 33.6 G/DL (30.0-36.0); MCV 88.1 FL (86-99); RBC DIS.WIDTH-CV 16.1 % (11.8-14.6); RBC DIS.WIDTH-SD 51.6 % (39-53); RED BLOOD COUNT 2.77 M/uL (4.00-5.50)
[2017-02-21 00:53] LABS: WHITE BLOOD COUNT 0.5 K/uL (4.1-10.2)
[2017-02-21 01:19] LABS: IMM.PLATELET FRACTION 1.8 (1-7); MEAN PLAT.VOLUME 9.5 uM^3 (9.0-12.4); PLAT.SUFFICIENCY DECREASED; PLATELET COUNT 47 K/uL (156-360)
[2017-02-21 08:10] VITALS: BP 116/55
[2017-02-21 10:01] LABS: HEMATOCRIT 25.4 % (38.0-50.0); MCH 30.1 PG (29.0-34.0); MCHC 33.5 G/DL (30.0-36.0); MCV 90.1 FL (86-99); RBC DIS.WIDTH-SD 52.6 % (39-53); RED BLOOD COUNT 2.82 M/uL (4.00-5.50); WHITE BLOOD COUNT 0.5 K/uL (4.1-10.2)
[2017-02-21 10:33] LABS: HEMATOLOGY COMMENT 1 SMEAR COMPATIBLE; IMM.PLATELET FRACTION 1.1 (1-7); MEAN PLAT.VOLUME 10.6 uM^3 (9.0-12.4); PLAT.SUFFICIENCY DECREASED; PLATELET COUNT 44 K/uL (156-360)
[2017-02-21 11:22] LABS: ANION GAP 6 MEQ/L (2-14); CHLORIDE 100 MEQ/L (99-109); GFR ESTIMATE (CALCULATED) > 59 mL/min/; GLUCOSE 131 mg/dL (70-99); POTASSIUM 3.9 MEQ/L (3.7-5.4); SAMPLE HEMOLYSIS CHECK 0; SAMPLE ICTERIC CHECK 0; SAMPLE LIPEMIA CHECK 0; SODIUM 133 MEQ/L (136-147); UREA NITROGEN (BUN) 13 mg/dL (9-23)
[2017-02-21 16:08] VITALS: BP 116/55
[2017-02-22] VITALS: BP 141/65
[2017-02-22 06:37] LABS: HEMATOCRIT 23.3 % (38.0-50.0); IMM.PLATELET FRACTION 2.1 (1-7); MCH 30.3 PG (29.0-34.0); MCHC 33.9 G/DL (30.0-36.0); MCV 89.3 FL (86-99); MEAN PLAT.VOLUME 11.3 uM^3 (9.0-12.4); PLATELET COUNT 38 K/uL (156-360); RBC DIS.WIDTH-CV 16.2 % (11.8-14.6); RBC DIS.WIDTH-SD 51.8 % (39-53); RED BLOOD COUNT 2.61 M/uL (4.00-5.50)
[2017-02-22 06:52] LABS: WHITE BLOOD COUNT 0.5 K/uL (4.1-10.2)
[2017-02-22 08:06] LABS: ANION GAP 5 MEQ/L (2-14); CHLORIDE 95 MEQ/L (99-109); POTASSIUM 4.4 MEQ/L (3.7-5.4); SAMPLE HEMOLYSIS CHECK 0; SAMPLE ICTERIC CHECK 0; SAMPLE LIPEMIA CHECK 0; SODIUM 127 MEQ/L (136-147)
[2017-02-22 08:10] VITALS: BP 116/53
[2017-02-22 08:11] LABS: GFR ESTIMATE (CALCULATED) > 59 mL/min/; GLUCOSE 117 mg/dL (70-99); UREA NITROGEN (BUN) 11 mg/dL (9-23)
[2017-02-22 12:06] LABS: HEMATOLOGY COMMENT 1 SMEAR COMPATIBLE; PLAT.SUFFICIENCY DECREASED
[2017-02-22 16:00] VITALS: BP 120/57
[2017-02-22 23:05] VITALS: BP 131/63
[2017-02-23 07:27] LABS: HEMATOCRIT 25.6 % (38.0-50.0); MCH 29.7 PG (29.0-34.0); MCHC 33.2 G/DL (30.0-36.0); MCV 89.5 FL (86-99); NRBC (%) 4.4 /100 WBC (0-0); RBC DIS.WIDTH-SD 51.7 % (39-53); RED BLOOD COUNT 2.86 M/uL (4.00-5.50)
[2017-02-23 07:28] LABS: WHITE BLOOD COUNT 0.5 K/uL (4.1-10.2)
[2017-02-23 07:41] VITALS: BP 117/57
[2017-02-23 08:14] LABS: IMM.PLATELET FRACTION 2.3 (1-7); MEAN PLAT.VOLUME 9.4 uM^3 (9.0-12.4); PLAT.SUFFICIENCY DECREASED; PLATELET COUNT 34 K/uL (156-360)
[2017-02-23 11:18] LABS: ANION GAP 5 MEQ/L (2-14); CHLORIDE 95 MEQ/L (99-109); GFR ESTIMATE (CALCULATED) > 59 mL/min/; GLUCOSE 103 mg/dL (70-99); SAMPLE HEMOLYSIS CHECK 0; SAMPLE ICTERIC CHECK 0; SAMPLE LIPEMIA CHECK 0; SODIUM 129 MEQ/L (136-147); UREA NITROGEN (BUN) 12 mg/dL (9-23)
[2017-02-23 11:19] LABS: POTASSIUM 3.4 MEQ/L (3.7-5.4)
[2017-02-23 16:14] VITALS: BP 115/58
[2017-02-23 20:40] VITALS: BP 125/59
[2017-02-24 00:10] VITALS: BP 133/67
[2017-02-24 03:13] VITALS: BP 106/55
[2017-02-24 07:10] VITALS: BP 102/54
[2017-02-24 16:17] VITALS: BP 99/53
[2017-02-25 07:45] VITALS: BP 106/52
[2017-02-25] MEDS ORDERED: DUONEB 2.5-0.5 M3 ML AEROSOL (10:40)
[2017-02-25] MEDS ORDERED: VORICONAZOLE200 MG PO (10:40)
[2017-02-25] MEDS ORDERED: FUROSEMIDE20 MG PO (10:40)
[2017-02-25] MEDS ORDERED: SODIUM CHLORIDE1 G1 PO (10:40)
[2017-02-25 11:41] LABS: MCH 29.6 PG (29.0-34.0); MCV 89.5 FL (86-99); RBC DIS.WIDTH-CV 16.4 % (11.8-14.6); RBC DIS.WIDTH-SD 53.3 % (39-53); RED BLOOD COUNT 2.57 M/uL (4.00-5.50)
[2017-02-25 12:06] LABS: WHITE BLOOD COUNT 0.4 K/uL (4.1-10.2)
[2017-02-25 12:14] LABS: IMM.PLATELET FRACTION 3.4 (1-7); MEAN PLAT.VOLUME 10.1 uM^3 (9.0-12.4)
[2017-02-25 12:17] LABS: ANION GAP 6 MEQ/L (2-14); CHLORIDE 97 MEQ/L (99-109); GFR ESTIMATE (CALCULATED) > 59 mL/min/; GLUCOSE 131 mg/dL (70-99); POTASSIUM 3.5 MEQ/L (3.7-5.4); SAMPLE HEMOLYSIS CHECK 0; SAMPLE ICTERIC CHECK 0; SAMPLE LIPEMIA CHECK 0; SODIUM 131 MEQ/L (136-147); UREA NITROGEN (BUN) 13 mg/dL (9-23)
[2017-02-25 12:25] LABS: PLATELET COUNT 27 K/uL (156-360)
[2017-02-25 16:19] VITALS: BP 123/56
== END 2017-02-25 20:00 | disposition home health service (06) | DRG 808 ==
LOC: EME 16:44 → EDOF 18:00 → 4EAST 21:39 → EDOF 21:39 → 4EAST 02-11 01:22 → ENRESERV 02-16 09:55 → 5EAST 02-16 14:54 → ENPENDDIS 02-25 → 5EAST 02-25 20:00
PROVIDERS: Emergency Medicine; Hospitalist; Internal Medicine; Internal Medicine Medical Oncology
PROC: 30233N1 Transfusion of Nonautologous Red Blood Cells into Peripheral Vein, Percutaneous Approach (ICD-10-PCS; principal; 2017-02-10)
PROC: 30233R1 Transfusion of Nonautologous Platelets into Peripheral Vein, Percutaneous Approach (ICD-10-PCS; 2017-02-11)
PROC: 30233K1 Transfusion of Nonautologous Frozen Plasma into Peripheral Vein, Percutaneous Approach (ICD-10-PCS; 2017-02-12)
DX: D61.810 Antineoplastic chemotherapy induced pancytopenia (principal); T45.1X5A Adverse effect of antineoplastic and immunosuppressive drugs, initial encounter; I26.90 Septic pulmonary embolism without acute cor pulmonale; I76 Septic arterial embolism; J16.8 Pneumonia due to other specified infectious organisms; J44.0 Chronic obstructive pulmonary disease with (acute) lower respiratory infection; J96.01 Acute respiratory failure with hypoxia; D46.9 Myelodysplastic syndrome, unspecified; E22.2 Syndrome of inappropriate secretion of antidiuretic hormone; E83.51 Hypocalcemia; E87.6 Hypokalemia; R50.81 Fever presenting with conditions classified elsewhere; I95.9 Hypotension, unspecified; K92.1 Melena; R31.9 Hematuria, unspecified; R94.31 Abnormal electrocardiogram [ECG] [EKG]; R04.2 Hemoptysis; R60.0 Localized edema; K21.9 Gastro-esophageal reflux disease without esophagitis; F41.8 Other specified anxiety disorders; F17.210 Nicotine dependence, cigarettes, uncomplicated; Z22.322 Carrier or suspected carrier of Methicillin resistant Staphylococcus aureus; Z87.01 Personal history of pneumonia (recurrent); Z88.2 Allergy status to sulfonamides; Z80.0 Family history of malignant neoplasm of digestive organs; Z80.1 Family history of malignant neoplasm of trachea, bronchus and lung; Z82.5 Family history of asthma and other chronic lower respiratory diseases
CPT/HCPCS: 36415; 36591; 71010; 71020; 71275; 76000; 80048; 80048 91; 80053; 80076; 80202; 81003; 82040; 82272; 82565; 83605; 83935; 84300; 84484; 84550; 85009; 85025; 85027; 85378; 85384; 85610; 85730; 86900; 86901; 86920; 87040; 87070; 87205; 87493; 87641; 93005; 94640; 94640 76; 94667; 94668; 94799; 96372; 99202; 99281; 99285; C9113; J0692; J0885; J1940; J2270; J2405; J3370; J7030; J7050; P9016; P9017; P9035; S0028

== ENCOUNTER 2017-03-05 13:04 | Inpatient (IN) | payer OTHER ==
[~2017-03-05] VITALS: Ht 177.8 cm; Wt 79.0 kg
[~2017-03-05 13:04] MED LIST changes: +CLOTRIMAZOLE10 MG PO; +DUONEB 2.5-0.5 M3 ML AEROSOL; +EPOGEN,PRO20000 UNIT IV; +FLUCONAZOLE200 MG PO; +FUROSEMIDE20 MG PO; +MS CONTIN,ORAMO30 MG PO; +SODIUM CHLORIDE1 G1 PO; +VORICONAZOLE200 MG PO
[2017-03-05 14:56] LABS: HEMATOCRIT 19.8 % (38.0-50.0); MCH 29.1 PG (29.0-34.0); MCHC 33.8 G/DL (30.0-36.0); MCV 86.1 FL (86-99); NRBC (%) 9.1 /100 WBC (0-0); RBC DIS.WIDTH-CV 16.9 % (11.8-14.6); RBC DIS.WIDTH-SD 52.5 % (39-53)
[2017-03-05 14:58] LABS: WHITE BLOOD COUNT 0.4 K/uL (4.1-10.2)
[2017-03-05 14:59] LABS: CHLORIDE 97 mEq/L (99-109); POTASSIUM 3.7 mEq/L (3.7-5.4); SODIUM 131 mEq/L (136-147)
[2017-03-05 15:01] LABS: GLUCOSE 120 mg/dL (70-99)
[2017-03-05 15:02] LABS: ANION GAP 5 MEQ/L (2-14)
[2017-03-05 15:03] LABS: TOTAL BILIRUBIN 1.5 mg/dL (0.0-1.0)
[2017-03-05 15:04] LABS: ALKALINE PHOSPHATASE 341 IU/L (3-129)
[2017-03-05 15:05] LABS: GFR ESTIMATE (CALCULATED) > 59 mL/min/
[2017-03-05 15:06] LABS: UREA NITROGEN (BUN) 20 mg/dL (9-23)
[2017-03-05 15:14] LABS: TROP-I INTERPRETATION NEGATIVE; TROPONIN-I < 0.01 ng/mL (0.0-0.30)
[2017-03-05 15:23] LABS: ADD MIUA? NO; BILIRUBIN NEGATIVE; BLOOD NEGATIVE; COLOR AMBER ((YELLOW)); GLUCOSE (STRIP) NEGATIVE; KETONES NEGATIVE; LEUKOCYTES NEGATIVE; NITRITE NEGATIVE; PROTEIN (STRIP) 30; SPECIFIC GRAVITY 1.021 (1.000-1.030); UROBILINOGEN 0.2 MG/DL (0.2-1.0)
[2017-03-05 17:23] LABS: ABS NEUTROPHIL COUNT 0.1; ANISOCYTOSIS 1+; EOSINOPHIL ABS CT 0; HYPOCHROMASIA 1+; IMM.PLATELET FRACTION 5.2 (1-7); INSTRUMENT ABS NEUTROPHIL CT 0.1 K/uL
[2017-03-05 17:24] LABS: PLAT.SUFFICIENCY VERY DECREASED; PLATELET COUNT 31 K/uL (156-360)
[2017-03-05] MEDS ORDERED: TUMS500 MG PO (17:46)
[2017-03-05] MEDS ORDERED: NICOTINE PATCH1 EAC2 TD (17:47)
[2017-03-05] MEDS ORDERED: MAXIPIME2 GM IV (17:50)
[2017-03-05] MEDS ORDERED: VANCOMYCIN1 GM/150 M IV (17:50)
[2017-03-05] MEDS ORDERED: ATOVAQUONE750 MG/5 M PO (17:51)
[2017-03-05 20:50] VITALS: BP 116/57
[2017-03-05 23:15] VITALS: BP 106/53
[2017-03-05 23:48] VITALS: BP 112/58
[2017-03-06] VITALS (8 sets, daily range): BP systolic 106–120; BP diastolic 56–66
[2017-03-06 06:43] LABS: HEMATOCRIT 26.2 % (38.0-50.0); MCH 30.2 PG (29.0-34.0); MCHC 35.1 G/DL (30.0-36.0); MCV 85.9 FL (86-99); RBC DIS.WIDTH-CV 16.1 % (11.8-14.6); RBC DIS.WIDTH-SD 49.7 % (39-53)
[2017-03-06 06:52] LABS: RED BLOOD COUNT 3.05 M/uL (4.00-5.50); WHITE BLOOD COUNT 0.4 K/uL (4.1-10.2)
[2017-03-06 06:59] LABS: IMM.PLATELET FRACTION 6.5 (1-7); PLAT.SUFFICIENCY DECREASED; PLATELET COUNT 31 K/uL (156-360)
[2017-03-06 07:06] LABS: MEAN PLAT.VOLUME 12.5 uM^3 (9.0-12.4)
[2017-03-06 07:15] LABS: ANION GAP 8 MEQ/L (2-14); CHLORIDE 100 MEQ/L (99-109); GFR ESTIMATE (CALCULATED) > 59 mL/min/; GLUCOSE 108 mg/dL (70-99); POTASSIUM 3.9 MEQ/L (3.7-5.4); SAMPLE HEMOLYSIS CHECK 0; SAMPLE ICTERIC CHECK 0; SAMPLE LIPEMIA CHECK 0; SODIUM 136 MEQ/L (136-147); UREA NITROGEN (BUN) 16 mg/dL (9-23)
[2017-03-07 04:00] VITALS: BP 119/61
[2017-03-07 08:26] VITALS: BP 114/54
[2017-03-07 11:45] VITALS: BP 100/51
[2017-03-07 15:43] LABS: ADD MIUA? YES; BILIRUBIN NEGATIVE; BLOOD MODERATE; COLOR YELLOW ((YELLOW)); GLUCOSE (STRIP) NEGATIVE; KETONES NEGATIVE; LEUKOCYTES NEGATIVE; NITRITE NEGATIVE; PROTEIN (STRIP) 30; SPECIFIC GRAVITY 1.019 (1.000-1.030); UROBILINOGEN 0.2 MG/DL (0.2-1.0)
[2017-03-07 16:29] LABS: BACTERIA RARE /HPF; EPITHELIAL CELLS NONE SEEN /HPF; GRANULAR CASTS 0-5 /LPF; HYALINE CASTS 0-5 /LPF; MUCUS TRACE /LPF; RED BLOOD CELLS 30-40 /HPF (0-5); WHITE BLOOD CELLS 0-5 /HPF (0-5)
[2017-03-07 16:33] VITALS: BP 106/60
[2017-03-07 23:12] VITALS: BP 130/60
[2017-03-08 06:26] LABS: HEMATOCRIT 22.4 % (38.0-50.0); MCH 30.1 PG (29.0-34.0); MCHC 34.8 G/DL (30.0-36.0); MCV 86.5 FL (86-99); NRBC (%) 13.6 /100 WBC (0-0); RBC DIS.WIDTH-CV 16.4 % (11.8-14.6); RBC DIS.WIDTH-SD 51.6 % (39-53); RED BLOOD COUNT 2.59 M/uL (4.00-5.50)
[2017-03-08 06:30] LABS: WHITE BLOOD COUNT 0.2 K/uL (4.1-10.2)
[2017-03-08 06:33] LABS: IMM.PLATELET FRACTION 6.6 (1-7); MEAN PLAT.VOLUME 14.2 uM^3 (9.0-12.4)
[2017-03-08 06:35] LABS: PLAT.SUFFICIENCY VERY DECREASED; PLATELET COUNT 14 K/uL (156-360)
[2017-03-08 07:54] VITALS: BP 125/60
[2017-03-08 15:39] VITALS: BP 117/58
[2017-03-08 23:50] VITALS: BP 120/56
[2017-03-09] VITALS (13 sets, daily range): BP systolic 105–121; BP diastolic 51–69
[2017-03-09 09:47] LABS: HEMATOCRIT 18.8 % (38.0-50.0); MCH 29.2 PG (29.0-34.0); MCV 88.7 FL (86-99); NRBC (%) 15.4 /100 WBC (0-0); RBC DIS.WIDTH-CV 16.4 % (11.8-14.6); RBC DIS.WIDTH-SD 52.9 % (39-53); RED BLOOD COUNT 2.12 M/uL (4.00-5.50)
[2017-03-09 09:48] LABS: WHITE BLOOD COUNT 0.1 K/uL (4.1-10.2)
[2017-03-09 10:04] LABS: ALKALINE PHOSPHATASE 185 IU/L (3-129); ANION GAP 6 MEQ/L (2-14); CHLORIDE 98 MEQ/L (99-109); GFR ESTIMATE (CALCULATED) > 59 mL/min/; GLUCOSE 104 mg/dL (70-99); SAMPLE HEMOLYSIS CHECK 0; SAMPLE ICTERIC CHECK 0; SAMPLE LIPEMIA CHECK 0; SODIUM 135 MEQ/L (136-147); TOTAL BILIRUBIN 1.9 MG/DL (0.0-1.0); UREA NITROGEN (BUN) 19 mg/dL (9-23)
[2017-03-09 11:11] LABS: ABS NEUTROPHIL COUNT 0; ANISOCYTOSIS 1+; EOSINOPHIL ABS CT 0; HYPOCHROMASIA 2+; INSTRUMENT ABS NEUTROPHIL CT 0 K/uL; PLAT.SUFFICIENCY DECREASED
[2017-03-09 11:59] LABS: MEAN PLAT.VOLUME 9.8 uM^3 (9.0-12.4); PLATELET COUNT 31 K/uL (156-360)
[2017-03-10] VITALS (22 sets, daily range): BP systolic 85–142; BP diastolic 47–73
[2017-03-10 05:12] LABS: BASE EXCESS 3.5 mEq/L (-3 to +3); BICARBONATE 33.2 mEq/L (22-26); CARBOXY HGB 4.2 % (0-5); METHEMOGLOBIN 1.4 % (0-1.5); PCO2 85 mm Hg (35-45); PO2 108 mm Hg (80-100)
[2017-03-10 05:12] LABS: POINT-OF-CARE METER ID UU14174225
[2017-03-10 05:13] LABS: COMMENTS - BLOOD GASES A+C+; DEVICE NRBM; FI02 100 %; O2 FLOW 15 L/MIN; SITE RR; TOTAL RESP RATE 18 resp/min
[2017-03-10 06:09] LABS: ALKALINE PHOSPHATASE 167 IU/L (3-129); ANION GAP 6 MEQ/L (2-14); CHLORIDE 96 MEQ/L (99-109); GFR ESTIMATE (CALCULATED) > 59 mL/min/; SAMPLE HEMOLYSIS CHECK 0; SAMPLE ICTERIC CHECK 0; SAMPLE LIPEMIA CHECK 0; SODIUM 134 MEQ/L (136-147); TOTAL BILIRUBIN 1.7 MG/DL (0.0-1.0); UREA NITROGEN (BUN) 23 mg/dL (9-23)
[2017-03-10 06:10] LABS: GLUCOSE 163 mg/dL (70-99)
[2017-03-10 06:28] LABS: HEMATOCRIT 28.2 % (38.0-50.0); MCH 28.9 PG (29.0-34.0); MCHC 32.6 G/DL (30.0-36.0); MCV 88.7 FL (86-99); NRBC (%) 6.4 /100 WBC (0-0); RBC DIS.WIDTH-CV 16.4 % (11.8-14.6); RBC DIS.WIDTH-SD 53.3 % (39-53)
[2017-03-10 07:06] LABS: RED BLOOD COUNT 3.18 M/uL (4.00-5.50); WHITE BLOOD COUNT 0.5 K/uL (4.1-10.2)
[2017-03-10 07:09] LABS: METH RESISTANT S AUREUS PCR POSITIVE (NEGATIVE)
[2017-03-10 07:13] LABS: PROBE CHECK PASS
[2017-03-10 07:43] LABS: INTERNAL CONTROL VALID? YES
[2017-03-10 07:50] LABS: MAGNESIUM 1.9 mg/dl (1.3-2.7)
[2017-03-10 08:27] LABS: IMM.PLATELET FRACTION 4.5 (1-7); MEAN PLAT.VOLUME 11.6 uM^3 (9.0-12.4); PLATELET COUNT 33 K/uL (156-360)
[2017-03-10 13:53] LABS: BASE EXCESS 10.4 mEq/L (-3 to +3); BICARBONATE 36.9 mEq/L (22-26); CARBOXY HGB 3.9 % (0-5); METHEMOGLOBIN 1.5 % (0-1.5)
[2017-03-10 13:54] LABS: COMMENTS - BLOOD GASES +C; DEVICE HHFNC; FI02 50 %; O2 FLOW 35 L/MIN; PCO2 61 mm Hg (35-45); PO2 57 mm Hg (80-100); SITE RR +A; TOTAL RESP RATE 24 resp/min; pH 7.39 (7.35-7.45)
[2017-03-11] VITALS (30 sets, daily range): BP systolic 77–134; BP diastolic 46–67
[2017-03-11 05:57] LABS: ANION GAP 5 MEQ/L (2-14); CHLORIDE 99 MEQ/L (99-109); MAGNESIUM 1.9 mg/dl (1.3-2.7); POTASSIUM 4.2 MEQ/L (3.7-5.4); SAMPLE HEMOLYSIS CHECK 0; SAMPLE ICTERIC CHECK 0; SAMPLE LIPEMIA CHECK 0; SODIUM 136 MEQ/L (136-147)
[2017-03-11 06:02] LABS: GFR ESTIMATE (CALCULATED) > 59 mL/min/; GLUCOSE 130 mg/dL (70-99); UREA NITROGEN (BUN) 25 mg/dL (9-23)
[2017-03-11 06:45] LABS: MCHC 33.6 G/DL (30.0-36.0); MCV 86.3 FL (86-99); RBC DIS.WIDTH-CV 16.5 % (11.8-14.6); RBC DIS.WIDTH-SD 52.2 % (39-53); RED BLOOD COUNT 2.55 M/uL (4.00-5.50)
[2017-03-11 07:08] LABS: TROP-I INTERPRETATION NEGATIVE; TROPONIN-I 0.03 ng/mL (0.0-0.30)
[2017-03-11 08:15] LABS: WHITE BLOOD COUNT 0.1 K/uL (4.1-10.2)
[2017-03-11 08:17] LABS: PLAT.SUFFICIENCY VERY DECREASED; PLATELET COUNT 13 K/uL (156-360)
[2017-03-11 08:23] LABS: IMM.PLATELET FRACTION 5.8 (1-7)
[2017-03-12] VITALS (22 sets, daily range): BP systolic 0–155; BP diastolic 0–93
[2017-03-12 02:06] LABS: CHLORIDE 100 mEq/L (99-109); POTASSIUM 4.3 mEq/L (3.7-5.4); SODIUM 139 mEq/L (136-147)
[2017-03-12 02:07] LABS: MAGNESIUM 2.1 mg/dL (1.3-2.7)
[2017-03-12 02:08] LABS: GLUCOSE 104 mg/dL (70-99)
[2017-03-12 02:10] LABS: ANION GAP 13 MEQ/L (2-14); TOTAL BILIRUBIN 1.8 mg/dL (0.0-1.0)
[2017-03-12 02:12] LABS: GFR ESTIMATE (CALCULATED) > 59 mL/min/
[2017-03-12 02:13] LABS: UREA NITROGEN (BUN) 37 mg/dL (9-23)
[2017-03-12 02:19] LABS: ALKALINE PHOSPHATASE 131 IU/L (3-129)
[2017-03-12 02:21] LABS: BASE EXCESS 4.9 mEq/L (-3 to +3); CARBOXY HGB 3.2 % (0-5); METHEMOGLOBIN 1.5 % (0-1.5)
[2017-03-12 02:22] LABS: COMMENTS - BLOOD GASES C+; DEVICE VENT; FI02 100 %; MECHANICAL RATE 16 resp/min; MODE A/C; PCO2 83 mm Hg (35-45); PEEP 5 CM/H20; PO2 226 mm Hg (80-100); SITE LR ALINE; TIDAL VOLUME 450 ML; TOTAL RESP RATE 16 resp/min; pH 7.22 (7.35-7.45)
[2017-03-12 02:37] LABS: HEMATOCRIT 25.1 % (38.0-50.0); IMM.PLATELET FRACTION 4.5 (1-7); MCHC 33.1 G/DL (30.0-36.0); MEAN PLAT.VOLUME 11.4 uM^3 (9.0-12.4); NRBC (%) 10.3 /100 WBC (0-0); RBC DIS.WIDTH-CV 16.4 % (11.8-14.6); RBC DIS.WIDTH-SD 54.6 % (39-53); RED BLOOD COUNT 2.77 M/uL (4.00-5.50)
[2017-03-12 02:38] LABS: MCV 90.6 FL (86-99); PLATELET COUNT 50 K/uL (156-360); WHITE BLOOD COUNT 0.3 K/uL (4.1-10.2)
[2017-03-12 04:04] LABS: ADD MIUA? YES; BILIRUBIN NEGATIVE; BLOOD SMALL; COLOR AMBER ((YELLOW)); GLUCOSE (STRIP) NEGATIVE; KETONES NEGATIVE; LEUKOCYTES NEGATIVE; NITRITE NEGATIVE; PROTEIN (STRIP) 100; SPECIFIC GRAVITY 1.021 (1.000-1.030); UROBILINOGEN 0.2 MG/DL (0.2-1.0)
[2017-03-12 04:08] LABS: TROP-I INTERPRETATION NEGATIVE; TROPONIN-I 0.11 ng/mL (0.0-0.30)
[2017-03-12 05:39] LABS: RED BLOOD CELLS 0-5 /HPF (0-5)
[2017-03-12 05:40] LABS: AMORPHOUS URATES CRYSTALS 2+; BACTERIA 1+ /HPF; CASTS PRESENT /LPF; COARSE GRANULAR CASTS 0-5 /LPF; CRYSTALS PRESENT; EPITHELIAL CELLS RARE /HPF; FINE GRANULAR CASTS 0-5 /LPF; HYALINE CASTS 0-5 /LPF; MUCUS NONE SEEN /LPF
[2017-03-12 05:41] LABS: UCUL ADDED? YES
[2017-03-12 05:57] LABS: ANION GAP 5 MEQ/L (2-14); CHLORIDE 100 MEQ/L (99-109); GFR ESTIMATE (CALCULATED) > 59 mL/min/; MAGNESIUM 2.1 mg/dl (1.3-2.7); POTASSIUM 4.1 MEQ/L (3.7-5.4); SAMPLE HEMOLYSIS CHECK 0; SAMPLE ICTERIC CHECK 0; SAMPLE LIPEMIA CHECK 0; SODIUM 139 MEQ/L (136-147); UREA NITROGEN (BUN) 38 mg/dL (9-23)
[2017-03-12 05:58] LABS: GLUCOSE 176 mg/dL (70-99)
[2017-03-12 06:25] LABS: HEMATOCRIT 24.7 % (38.0-50.0); MCH 29.9 PG (29.0-34.0); MCHC 33.6 G/DL (30.0-36.0); MCV 88.8 FL (86-99); NRBC (%) 8.3 /100 WBC (0-0); RBC DIS.WIDTH-CV 16.5 % (11.8-14.6); RBC DIS.WIDTH-SD 53.9 % (39-53); RED BLOOD COUNT 2.78 M/uL (4.00-5.50)
[2017-03-12 06:46] LABS: WHITE BLOOD COUNT 0.2 K/uL (4.1-10.2)
[2017-03-12 06:53] LABS: IMM.PLATELET FRACTION 3.4 (1-7); MEAN PLAT.VOLUME 11.4 uM^3 (9.0-12.4); PLAT.SUFFICIENCY DECREASED; PLATELET COUNT 41 K/uL (156-360)
[2017-03-12 12:17] LABS: BASE EXCESS 9.9 mEq/L (-3 to +3); BICARBONATE 36.3 mEq/L (22-26); CARBOXY HGB 3.1 % (0-5); METHEMOGLOBIN 1.4 % (0-1.5)
[2017-03-12 12:18] LABS: COMMENTS - BLOOD GASES +C; DEVICE PB980; FI02 50 %; MECHANICAL RATE 24 resp/min; MODE AC; PCO2 60 mm Hg (35-45); PEEP 5 CM/H20; PO2 71 mm Hg (80-100); SITE A-LINE; TIDAL VOLUME 450 ML; TOTAL RESP RATE 24 resp/min; pH 7.39 (7.35-7.45)
== END 2017-03-13 06:18 | disposition short-term general hospital (02) | DRG 208 ==
LOC: EME 13:04 → EDOF 16:50 → 5SOUTH 16:50 → 4WEST 16:50 → ENRESERV 16:51 → 5SOUTH 20:19 → ENRESERV 03-10 05:13 → 4WEST 03-10 05:22
PROVIDERS: Emergency Medicine; Hospitalist; Internal Medicine; Internal Medicine Infectious Disease
DX: J44.0 Chronic obstructive pulmonary disease with (acute) lower respiratory infection (principal); J16.8 Pneumonia due to other specified infectious organisms; J96.21 Acute and chronic respiratory failure with hypoxia; J96.22 Acute and chronic respiratory failure with hypercapnia; R09.2 Respiratory arrest; I46.9 Cardiac arrest, cause unspecified; I47.2 Ventricular tachycardia; J69.0 Pneumonitis due to inhalation of food and vomit; D46.9 Myelodysplastic syndrome, unspecified; D61.810 Antineoplastic chemotherapy induced pancytopenia; T45.1X5A Adverse effect of antineoplastic and immunosuppressive drugs, initial encounter; E22.2 Syndrome of inappropriate secretion of antidiuretic hormone; E86.0 Dehydration; F17.210 Nicotine dependence, cigarettes, uncomplicated; I27.2 Other secondary pulmonary hypertension; I76 Septic arterial embolism; I95.9 Hypotension, unspecified; R64 Cachexia; F32.9 Major depressive disorder, single episode, unspecified; B37.0 Candidal stomatitis; K21.9 Gastro-esophageal reflux disease without esophagitis; R50.81 Fever presenting with conditions classified elsewhere; E46 Unspecified protein-calorie malnutrition; I31.3 Pericardial effusion (noninflammatory); R73.9 Hyperglycemia, unspecified; R45.851 Suicidal ideations; R04.89 Hemorrhage from other sites in respiratory passages; G89.29 Other chronic pain
CPT/HCPCS: 31500; 36600; 70450; 71010; 74000; 80048; 80053; 80202; 81003; 82140; 82803; 82948; 83605; 83735; 83880; 84100; 84484; 85009; 85025; 85027; 85651; 86140; 86900; 86901; 86920; 87040; 87070; 87086; 87205; 87305 90; 87385 90; 87449; 87641; 87899; 93005; 93306; 93308; 94002; 94003; 94640; 94640 76; 94799; 96372; 99202; 99281; 99285; C1751; J0133; J0171; J0610; J0692; J0885; J1447; J1940; J2020; J2185; J2543; J2704; J3010; J3370; J3465; J3475; J7030; J7050; P9016; P9035; P9037; P9045